=== PATIENT | male | born 1945 | race Caucasian/White ===

== ENCOUNTER 2018-10-16 08:15 | Inpatient (IN) | payer OTHER ==
[2018-10-16 08:21] VITALS: BMI 24.8
--- NOTE | 2018-10-16 08:22 | PDOC ---
History of Present Illness - General Chief Complaint: Diarrhea Stated Complaint: COUGHING,CHILLS,DIARRHEA Time Seen by Provider: 10/16/18 08:22 History Source: Patient Exam Limitations: No Limitations - History of Present Illness Initial Comments: 10/16/18 08:23 This is a 69 yo M with PMH of EtOH abuse, acid reflux, hypothyroidism, prostate CA, BPH, HLD and SZ, who presents due to weakness, diarrhea and URI symptoms. Patient has been well until he started feeling weak on Friday, developed rhinorrhea and a cough productive of white sputum on fri and started having watery diarrhea (brown) on fri, 3 episodes /day that has since decreased in frequency. patient has had minimal PO intake for several days and feels extremely weak today. he presents to ED because he was unable to schedule a PCP apt today. he had a flus hot this season, has a 20 ppy smoking history but never had pna. He denies n/v, h/a, cp/palpitations, lightheadedness, abd pain, melena, hematochezia. He is slightly hypotensive and tachycardic on presentation 10/16/18 08:24 10/16/18 08:45 10/16/18 08:49 Past History - Past Medical History Allergies/Adverse Reactions: Allergies Allergy/AdvReac Type Severity Reaction Status Date / Time No Known Allergies Allergy Verified 10/16/18 08:21 Home Medications: Ambulatory Orders Atorvastatin Ca [Lipitor] 20 mg PO HS #0 tab 02/04/12 Levothyroxine [Synthroid -] 50 mcg PO DAILY@0700 #0 tablet 02/04/12 Terazosin HCl 10 mg PO DAILY #0 capsule 02/04/12 levETIRAcetam [Keppra -] 500 mg PO BID #180 tablet 12/24/14 Metformin HCl [Metformin HCl ER] 500 mg PO DAILY 10/16/18 Omeprazole 20 mg PO DAILY 10/16/18 Cancer: Yes (Prostate (S/P RT 43 sessions) 2012) COPD: No CHF: No HTN: Yes Hypercholesterolemia: Yes Seizures: Yes Thyroid Disease: Yes - Immunization History Immunization Up to Date: Yes - Suicide/Smoking/Psychosocial Hx Smoking Status: Yes Smoking History: Never smoked Years of Tobacco Use: 35 Have you smoked in the past 12 months: No Number of Cigarettes Smoked Daily: 20 If you are a former smoker, when did you quit?: 2 Cigars Per Day: 0 Information on smoking cessation initiated: No 'Breaking Loose' booklet given: 11/26/14 Hx Alcohol Use: No Drug/Substance Use Hx: No Substance Use Type: None Hx Substance Use Treatment: No Review of Systems - Review of Systems Able to Perform ROS?: Yes Is the patient limited Japanese proficient: No Constitutional: Yes: Malaise. No: Chills, Fever HEENTM: Yes: Nose Congestion Respiratory: Yes: Cough, Productive cough. No: Orthopnea, Shortness of Breath Cardiac (ROS): No: Chest Pain, Edema, Irregular Heart Rate, Lightheadedness, Palpitations, Syncope ABD/GI: Yes: Diarrhea, Poor Appetite, Poor Fluid Intake. No: Abdominal Distended, Constipated, Nausea, Vomiting : No: Dysuria Musculoskeletal: No: Back Pain Neurological: No: Headache, Numbness, Paresthesia Psychiatric: No: Anxiety, Depression *Physical Exam - Vital Signs Last Vital Signs Temp Pulse Resp BP Pulse Ox 98.3 F 119 H 19 84/53 L 99 10/16/18 08:17 10/16/18 08:17 10/16/18 08:17 10/16/18 08:17 10/16/18 08:17 - Physical Exam General Appearance: Yes: Nourished, Appropriately Dressed, Thin. No: Apparent Distress, Alcohol on Breath HEENT: positive: EOMI, Normal Voice, Pharynx Normal, Tonsillar Erythema (mild), Nasal Congestion, Rhinorrhea, Other (dry mucous membranes ). negative: Scleral Icterus (R), Scleral Icterus (L) Neck: positive: Trachea midline, Supple. negative: Tender, Rigid Respiratory/Chest: positive: Lungs Clear, Normal Breath Sounds Cardiovascular: positive: Regular Rhythm, S1, S2, Tachycardia. negative: Edema , JVD Gastrointestinal/Abdominal: positive: Normal Bowel Sounds, Flat, Soft. negative : Tender, Organomegaly, Guarding, Rebound, Mass Musculoskeletal: negative: CVA Tenderness Integumentary: positive: Dry, Warm. negative: Erythema, Jaundice Neurologic: positive: multilith operator II-XII NML intact (grossly), Fully Oriented, Alert Moderate Sedation - Procedure Monitoring Vital Signs: Procedure Monitoring Vital Signs Temperature 98.3 F 10/16/18 08:17 Pulse Rate 119 H 10/16/18 08:17 Respiratory Rate 10/16/18 08:17 Blood Pressure 84/53 L 10/16/18 08:17 O2 Sat by Pulse Oximetry (%) 99 10/16/18 08:17 ED Treatment Course - LABORATORY CBC & Chemistry Diagram: 10/16/18 08:45 10/16/18 08:45 - ADDITIONAL ORDERS Additional order review: 10/16/18 10:22 Patient hypotensive and tachycardic, with rectal temp 101, lactate 3.6 on labs, adelia creat 1.4, no leukocytosis; consistent with severe sepsis ordering 3 cc/kg IVF NS and abx Repeat 108/58 after 1 L NS 10/16/18 10:25 CXR unremarkable 10/16/18 10:29 Clinical picture most consistent with viral enteritis/uri and severe dehydration , however cant r/o more serious causes of infection blood and urine cultures drawn, ua p/d. if has any more diarrhea should get tested for cdiff *DC/Admit/Observation/Transfer Diagnosis at time of Disposition: Severe sepsis - Discharge Dispostion Condition at time of disposition: Guarded Decision to Admit order: Yes - Referrals Referrals: Jose Luis Jimenez MD [Primary Care Provider] - - Patient Instructions - Post Discharge Activity
[2018-10-16] MEDS ORDERED: SODIUM CHLORIDE 0.9% 500 ML INFUS.BAG IV ONE ×2 (08:36→10:16)
[2018-10-16] MEDS ORDERED: SODIUM CHLORIDE 0.9% 1000 ML INFUS.BAG IV ONE (08:44)
[2018-10-16] MEDS ORDERED: ACETAMINOPHEN 1000 MG/100 ML VIAL (NON FORMULARY) IVPB ONE (08:59)
[2018-10-16] MEDS ORDERED: PIPERACILLIN/TAZOB 3.375 GM 3.375 GM in DEXTROSE 5%-WATER - 50 ML IVPB ONE (09:00)
[2018-10-16] MEDS ORDERED: VANCOMYCIN 1 GM in D5W (PRE-DOCKED) 1,000 MG/250 ML IVPB ONE (09:01)
[2018-10-16 09:23] LABS: BASO % 0.3 % (0-2.0); EOS % 0.5 % (0-4.5); HEMOGLOBIN 12.9 GM/dL (11.7-16.9); MCH 30.4 pg (25.7-33.7); MEAN CELL VOLUME 86.9 fl (80-96); MEAN PLT VOLUME 8.5 fl (7.5-11.1); MONO % 5.9 % (3.8-10.2); NEUT % 88.3 % (42.8-82.8); PLATELET COUNT 113 K/MM3 (134-434); RBC 4.26 M/mm3 (4.00-5.60); RDW 14.1 % (11.9-15.9); WHITE BLOOD COUNT 9.7 K/mm3 (4.0-10.0)
[2018-10-16 09:28] LABS: VENOUS PC02 46.6 mmHg (38-52); VENOUS PH 7.39 (7.32-7.42); VENOUS PO2 22.5 mmHg (28-48)
[2018-10-16 09:41] LABS: INR 1.16 (0.83-1.09); PROTHROMBIN TIME (PATIENT) 13.7 SEC (9.7-13.0)
[2018-10-16] MEDS ORDERED: ACETAMINOPHEN INJECTION 100 ML IVPB ONE (09:41)
[2018-10-16] MEDS ORDERED: VANCOMYCIN 1 GRAM (PRE-DOCKED) 1,000 MG/250 ML BAG IVPB ONE (09:41)
[2018-10-16] MEDS ORDERED: PIPERACILLIN/TAZOB 3.375 GM 3.375 GM/50 ML BAG IVPB ONE (09:42)
[2018-10-16 09:43] LABS: ACTIVATED PTT 25.8 SECONDS (25.2-36.5)
[2018-10-16 09:50] LABS: ALK PHOS 45 U/L (45-117); ANION GAP 9 MMOL/L (8-16); BILIRUBIN,TOTAL 0.6 mg/dL (0.2-1); BLOOD UREA NITROGEN 44 mg/dL (7-18); CALCIUM 9.2 mg/dL (8.5-10.1); CHLORIDE 102 mmol/L (98-107); CO2 29 mmol/L (21-32); CREATININE 1.4 mg/dL (0.55-1.3); GLUCOSE,RANDOM 195 mg/dL (74-106); LIPASE 75 U/L (73-393); POTASSIUM 4.1 mmol/L (3.5-5.1); SGOT/AST 16 U/L (15-37); SGPT/ALT 20 U/L (13-61); SODIUM 140 mmol/L (136-145); TRIGLYCERIDES 116 mg/dL (0-150)
--- NOTE | 2018-10-16 10:33 | PDOC ---
Attending Attestation - Medical Decision Making 2nd call placed for Dr. Jimenez's service 10/16/18 10:44 <Shannon Draper - Last Filed: 10/16/18 10:44> - Resident Resident Name: Whit Clarke - ED Attending Attestation I have performed the following: I have examined & evaluated the patient, The case was reviewed & discussed with the resident, I agree w/resident's findings & plan, Exceptions are as noted - HPI HPI: 10/16/18 10:49 69 years old past medical history significant for hypothyroidism hyperlipidemia , prostate cancer BPH acid reflux previous EtOH abuse presents emergency Department with four-day history of cough ingestion weakness watery diarrhea on Friday which has since started to resolve one episode today today became so weak that he collapsed to ground did not lose consciousness not had had symptoms have become moderate in severity persistent constant progressively worsening with no clear alleviating factors and exacerbated by decreased by mouth intake Insert my ROS statement. - Physicial Exam PE: 10/16/18 10:49 Vitals: Triage Vital signs reviewed General Appearance: no acute distress, well nourished well developed, Head: Atraumatic, Nose: Nares patent bilaterally;+ nasal congestion Throat: Posterior oropharynx without erythema, mucous membranes dry, Neck: Supple;No Nucal rigidity Chest Wall: Nontender Cardiac: Regular rate and rhythym, no murmurs, no rubs, no gallops, Lungs: Clear to auscultation bilateral, good air movement bilaterally, Abdomen: Soft, non distended, normal bowel sounds, non tender to palpation Extremities: Full range of motion to all extremities, no cyanosis, clubbing, or edema Skin: Warm and dry, no rashes or lesions, no rash, no petechiae Psych: normal mood, normal affect - Critical Care Time Total Critical Care Time: 35 Critical Care Statement: The care of this patient involved high complexity decision making to prevent further life threatening deterioration of the patient 's condition and/or to evaluate & treat vital organ system(s) failure or risk of failure. - Medical Decision Making 10/16/18 10:50 Vital signs concerning for sepsis given hypertension and tachycardia likely secondary to volume depletion Sepsis protocol initiated No significantly elevated white blood cell count patient with elevated lactic and elevated creatinine from baseline Flu negative chest x-ray unremarkable history examination at this point significant for volume depletion which is responding to fluids with a lactic acidosis Patient. Covered with broad-spectrum antibiotics we'll admit to medicine for further management. <Evan Blancas - Last Filed: 10/16/18 10:51>
--- NOTE | 2018-10-16 11:50 | EKG ---
Test Reason : Blood Pressure : / mmHG Vent. Rate : 105 BPM Atrial Rate : 105 BPM P-R Int : 138 ms QRS Dur : 074 ms QT Int : 348 ms P-R-T Axes : 056 034 057 degrees QTc Int : 459 ms SINUS TACHYCARDIA CANNOT RULE OUT ANTERIOR INFARCT , AGE UNDETERMINED ABNORMAL ECG WHEN COMPARED WITH ECG OF 23-DEC-2014 03:22, PREMATURE ATRIAL COMPLEXES ARE NO LONGER PRESENT Confirmed by MYRNA VICENTE, APRIL ([id number]) on 10/16/2018 11:49:52 AM Referred By: Confirmed By:APRIL NORRIS MD
--- NOTE | 2018-10-16 16:13 | HP ---
Admitting History and Physical - Primary Care Physician PCP: Jose Luis Jimenez - Admission History of Present Illness: pt seen/ examined in tele chart reviewed case discussed with vice president biostatistics Per Resident notes This is a 69 yo M with PMH of EtOH abuse, acid reflux, hypothyroidism, prostate CA, BPH, HLD and SZ, who presents due to weakness, diarrhea and URI symptoms. Patient has been well until he started feeling weak on Friday, developed rhinorrhea and a cough productive of white sputum on fri and started having watery diarrhea (brown) on fri, 3 episodes /day that has since decreased in frequency. patient has had minimal PO intake for several days and feels extremely weak today. he presents to ED because he was unable to schedule a PCP apt today. he had a flus hot this season, has a 20 ppy smoking history but never had pna. He denies n/v, h/a, cp/palpitations, lightheadedness, abd pain, melena, hematochezia. He is slightly hypotensive and tachycardic on presentation Pt given fluids / broad spectrum abx in er LActic acid elevated cxr -ve u/a pending pt feels better History Source: Patient Limitations to Obtaining History: No Limitations - Past Medical History Cardiovascular: Yes: HTN, Hyperlipdemia Gastrointestinal: Yes: GERD Renal/: Yes: Cancer (prostate cancer) Endocrine: Yes: Hypothyroidism - Smoking History Smoking history: Never smoked Have you smoked in the past 12 months: No Aproximately how many cigarettes per day: 20 If you are a former smoker, when did you quit?: 2 - Alcohol/Substance Use Hx Alcohol Use: No (occasional) - Social History History of Recent Travel: No Home Medications - Allergies Allergies/Adverse Reactions: Allergies Allergy/AdvReac Type Severity Reaction Status Date / Time No Known Allergies Allergy Verified 10/16/18 08:21 - Home Medications Home Medications: Ambulatory Orders Atorvastatin Ca [Lipitor] 20 mg PO HS #0 tab 02/04/12 Levothyroxine [Synthroid -] 50 mcg PO DAILY@0700 #0 tablet 02/04/12 levETIRAcetam [Keppra -] 500 mg PO BID #180 tablet 12/24/14 Metformin HCl [Metformin HCl ER] 500 mg PO DAILY 10/16/18 Omeprazole 20 mg PO HS 10/16/18 Terazosin HCl 10 mg PO HS 10/16/18 Review of Systems - Review of Systems Constitutional: reports: Fever, Loss of Appetite, Malaise, Weakness Eyes: reports: No Symptoms Neck: reports: No Symptoms Cardiovascular: reports: No Symptoms Respiratory: reports: Cough Genitourinary: reports: No Symptoms Neurological: reports: No Symptoms Psychiatric: reports: No Symptoms Physical Examination Vital Signs: Vital Signs Temperature 97.9 F 10/16/18 12:50 Pulse Rate 94 H 10/16/18 12:50 Respiratory Rate 18 10/16/18 12:50 Blood Pressure 105/58 L 10/16/18 12:50 O2 Sat by Pulse Oximetry (%) 97 10/16/18 13:32 Constitutional: Yes: No Distress, Calm Eyes: Yes: Conjunctiva Clear Neck: Yes: Supple, Other (no lymphadenopathy) Cardiovascular: Yes: Regular Rate and Rhythm Respiratory: Yes: CTA Bilaterally Gastrointestinal: Yes: Normal Bowel Sounds, Soft Edema: No Neurological: Yes: Alert Labs: CBC, BMP 10/16/18 08:45 10/16/18 08:45 Imaging - Results Chest X-ray: Report Reviewed EKG: Report Reviewed Other: Other Problem List - Problems (1) Hypotension Code(s): I95.9 - HYPOTENSION, UNSPECIFIED (2) Lactic acid blood increased Code(s): R79.89 - OTHER SPECIFIED ABNORMAL FINDINGS OF BLOOD CHEMISTRY (3) Severe sepsis Code(s): A41.9 - SEPSIS, UNSPECIFIED ORGANISM; R65.20 - SEVERE SEPSIS WITHOUT SEPTIC SHOCK Assessment/Plan Discussed fluids abx for now- empiricallyf/u cultures/ u/a orders written will follow
[2018-10-16] MEDS ORDERED: DEXTROSE 5%-WATER - 50 ML IVPB ONE (16:19)
[2018-10-16] MEDS ORDERED: cefTRIAXone SODIUM 1 GM VIAL ONE (16:19)
[2018-10-16 16:21] LABS: URINE APPEARANCE CLOUDY; URINE BILIRUBIN NEGATIVE (<2.0 mg/dL); URINE COLOR AMBER; URINE GLUCOSE (UA) 1+ (NEGATIVE); URINE KETONE TRACE (NEGATIVE); URINE LEUK ESTERASE NEGATIVE (NEGATIVE); URINE NITRITE NEGATIVE (NEGATIVE); URINE PROTEIN NEGATIVE (NEGATIVE); URINE UROBILINOGEN NEGATIVE mg/dL (0.2-1.0)
[2018-10-16] MEDS: SODIUM CHLORIDE 1,000 ML IV SCH (16:30)
[2018-10-16] MEDS: CEFTRIAXONE 1 GM in DEXTROSE 5%-WATER - 50 ML IVPB SCH (16:31)
[2018-10-16] MEDS ORDERED: PT OWN MED DRAWER 7, Y5N ONE (20:14)
[2018-10-16] MEDS: PANTOPRAZOLE 20 MG TABLET (FP) PO SCH ×2 (20:19→21:06)
[2018-10-16] MEDS: ATORVASTATIN CA 20 MG TABLET (FP) PO SCH (21:06)
[2018-10-16] MEDS: levETIRAcetam 500 MG TABLET (FP) PO SCH (21:06)
[2018-10-16] MEDS: TERAZOSIN HCL 5 MG CAPSULE PO SCH (21:07)
[2018-10-16] MEDS ORDERED: FAMOTIDINE 20 MG/50 ML IVPB 20 MG/50 ML MG IVPB ONE (21:17)
[2018-10-17] MEDS ORDERED: SODIUM CHLORIDE 500 ML IV STA (05:57)
[2018-10-17] MEDS: LEVOTHYROXINE NA 50 MCG TABLET (FP) PO SCH (06:19)
[2018-10-17 07:59] LABS: BASO % 0.3 % (0-2.0); HEMATOCRIT 22.8 % (35.4-49); HEMOGLOBIN 7.9 GM/dL (11.7-16.9); LYMPH % 11.4 % (8-40); MCH 29.7 pg (25.7-33.7); MCHC 34.5 g/dl (32.0-35.9); MEAN PLT VOLUME 8.6 fl (7.5-11.1); MONO % 10.3 % (3.8-10.2); PLATELET COUNT 97 K/MM3 (134-434); RBC 2.66 M/mm3 (4.00-5.60); RDW 14.2 % (11.9-15.9); WHITE BLOOD COUNT 5.6 K/mm3 (4.0-10.0)
[2018-10-17] MEDS ORDERED: cefTRIAXone SODIUM 1 GM VIAL ONE (08:15)
[2018-10-17] MEDS ORDERED: DEXTROSE 5%-WATER - 50 ML IVPB ONE (08:15)
[2018-10-17 08:57] LABS: ALK PHOS 30 U/L (45-117); ANION GAP 6 MMOL/L (8-16); BILIRUBIN,TOTAL 0.3 mg/dL (0.2-1); BLOOD UREA NITROGEN 28 mg/dL (7-18); CHLORIDE 114 mmol/L (98-107); CHOLESTEROL 73 mg/dL (50-200); CO2 24 mmol/L (21-32); CREATININE 0.9 mg/dL (0.55-1.3); GLUCOSE,RANDOM 92 mg/dL (74-106); HDL CHOLESTEROL 23 mg/dL (40-60); POTASSIUM 3.7 mmol/L (3.5-5.1); SGOT/AST 14 U/L (15-37); SGPT/ALT 14 U/L (13-61); SODIUM 143 mmol/L (136-145); TOT PROT 4.1 g/dl (6.4-8.2); TRIGLYCERIDES 109 mg/dL (0-150)
[2018-10-17] MEDS: levETIRAcetam 500 MG TABLET (FP) PO SCH ×2 (09:22→21:39)
[2018-10-17] MEDS: CEFTRIAXONE 1 GM in DEXTROSE 5%-WATER - 50 ML IVPB SCH (09:22)
[2018-10-17] MEDS: ENOXAPARIN NA (PORCINE) 40 MG/0.4 ML DISP.SYRIN SQ SCH (09:22)
[2018-10-17 11:54] LABS: BASO % 0.1 % (0-2.0); EOS % 3.2 % (0-4.5); HEMATOCRIT 22.8 % (35.4-49); HEMOGLOBIN 7.9 GM/dL (11.7-16.9); LYMPH % 12.8 % (8-40); MCH 30.1 pg (25.7-33.7); MCHC 34.5 g/dl (32.0-35.9); MEAN CELL VOLUME 87.4 fl (80-96); MONO % 9.4 % (3.8-10.2); NEUT % 74.5 % (42.8-82.8); PLATELET COUNT 95 K/MM3 (134-434); RBC 2.61 M/mm3 (4.00-5.60); RDW 14.3 % (11.9-15.9); WHITE BLOOD COUNT 5.2 K/mm3 (4.0-10.0)
--- NOTE | 2018-10-17 11:54 | PN ---
Progress Note (short form) - Note Progress Note: pt seen/ examined feels better no distress bp still low side low grade temp Vital Signs Temp 99.0 F 10/17/18 09:03 Pulse 92 H 10/17/18 09:03 Resp 16 10/17/18 09:03 BP 98/56 L 10/17/18 09:03 Pulse Ox 98 10/17/18 09:00 Intake & Output 10/16/18 10/16/18 10/17/18 11:59 23:59 11:59 Intake Total 450 200 Balance 450 200 Weight 173 lb 173 lb Intake: IV 450 200 Normal Saline - 1,000 ml 450 @ 100 mls/hr IV ASDIR SHAUN Rx#:[id number] Normal Saline - 500 ml @ 200 500 mls/hr IV ASDIR STA Rx#:[id number] Other: Voiding Method Urinal Urinal Height 5 ft 10 in 5 ft 10 in Body Mass Index (BMI) 24.8 24.8 Weight Measurement Method Estimated by Patient Weight Measurement Method Standing Scale Active Medications Atorvastatin Calcium (Lipitor -) 20 mg PO HS [facility] Last Admin: 10/16/18 21:06 Dose: 20 mg Enoxaparin Sodium (Lovenox -) 40 mg SQ DAILY [facility] Last Admin: 10/17/18 09:22 Dose: 40 mg Ceftriaxone Sodium 1 gm/ (Dextrose) 50 mls @ 100 mls/hr IVPB DAILY [facility]; Protocol Last Admin: 10/17/18 09:22 Dose: 100 mls/hr Sodium Chloride (Normal Saline -) 1,000 mls @ 100 mls/hr IV [facility] Last Admin: 10/16/18 16:30 Dose: 100 mls/hr Levetiracetam (Keppra -) 500 mg PO BID [facility] Last Admin: 10/17/18 09:22 Dose: 500 mg Levothyroxine Sodium (Synthroid -) 50 mcg PO DAILY@0700 [facility] Last Admin: 10/17/18 06:19 Dose: 50 mcg Metformin HCl (Glucophage Xr -) 500 mg PO DAILY [facility] Last Admin: 10/17/18 09:22 Dose: 500 mg Pantoprazole Sodium (Protonix -) 20 mg PO HS [facility] Last Admin: 10/16/18 21:06 Dose: Not Given Terazosin HCl (Hytrin -) 10 mg PO [facility] Last Admin: 10/16/18 21:07 Dose: 10 mg CBC, BMP 10/17/18 05:50 Microbiology 10/16/18 08:45 Blood Culture - Preliminary Blood - Peripheral Venous NO GROWTH OBTAINED AFTER 24 HOURS, INCUBATION TO CONTINUE FOR 4 DAYS. 10/16/18 08:50 Blood Culture - Preliminary Blood - Peripheral Venous NO GROWTH OBTAINED AFTER 24 HOURS, INCUBATION TO CONTINUE FOR 4 DAYS. Physical Examination Constitutional: Yes: No Distress, Calm Eyes: Yes: Conjunctiva Clear Neck: Yes: Supple, Other (no lymphadenopathy) Cardiovascular: Yes: Regular Rate and Rhythm Respiratory: Yes: CTA Bilaterally Gastrointestinal: Yes: Normal Bowel Sounds, Soft Edema: No Neurological: Yes: Alert/ awake Imaging - Results Chest X-ray: Report Reviewed EKG: Report Reviewed Other: Other Problem List - Problems (1) Hypotension Code(s): I95.9 - HYPOTENSION, UNSPECIFIED (2) Lactic acid blood increased Code(s): R79.89 - OTHER SPECIFIED ABNORMAL FINDINGS OF BLOOD CHEMISTRY (3) Severe sepsis Code(s): A41.9 - SEPSIS, UNSPECIFIED ORGANISM; R65.20 - SEVERE SEPSIS WITHOUT SEPTIC SHOCK Assessment/Plan Better cultures -ve so far viral ? fluids abx today if stable- will consider d/c abx in am / d/c Discussed with also will follow
[2018-10-17] MEDS: SODIUM CHLORIDE 1,000 ML IV SCH (16:34)
[2018-10-17] MEDS: PANTOPRAZOLE 20 MG TABLET (FP) PO SCH (21:38)
[2018-10-17] MEDS: ATORVASTATIN CA 20 MG TABLET (FP) PO SCH (21:39)
[2018-10-17] MEDS: TERAZOSIN HCL 5 MG CAPSULE PO SCH (21:41)
[2018-10-18] MEDS: LEVOTHYROXINE NA 50 MCG TABLET (FP) PO SCH (06:41)
[2018-10-18 07:42] LABS: BASO % 0.2 % (0-2.0); EOS % 4.7 % (0-4.5); HEMATOCRIT 21.7 % (35.4-49); HEMOGLOBIN 7.4 GM/dL (11.7-16.9); LYMPH % 12.3 % (8-40); MCH 29.6 pg (25.7-33.7); MCHC 34.3 g/dl (32.0-35.9); MEAN CELL VOLUME 86.3 fl (80-96); MEAN PLT VOLUME 8.4 fl (7.5-11.1); MONO % 8.4 % (3.8-10.2); NEUT % 74.4 % (42.8-82.8); PLATELET COUNT 114 K/MM3 (134-434); RBC 2.51 M/mm3 (4.00-5.60); RDW 14.5 % (11.9-15.9); WHITE BLOOD COUNT 5.1 K/mm3 (4.0-10.0)
[2018-10-18 08:25] LABS: ALBUMIN 2.3 g/dl (3.4-5.0); ALK PHOS 41 U/L (45-117); ANION GAP 8 MMOL/L (8-16); BILIRUBIN,TOTAL 0.3 mg/dL (0.2-1); BLOOD UREA NITROGEN 15 mg/dL (7-18); CHLORIDE 114 mmol/L (98-107); CO2 22 mmol/L (21-32); CREATININE 0.8 mg/dL (0.55-1.3); GLUCOSE,RANDOM 85 mg/dL (74-106); SGOT/AST 26 U/L (15-37); SGPT/ALT 25 U/L (13-61); SODIUM 144 mmol/L (136-145); TOT PROT 4.7 g/dl (6.4-8.2)
[2018-10-18] MEDS ORDERED: DEXTROSE 5%-WATER - 50 ML IVPB ONE (09:17)
[2018-10-18] MEDS ORDERED: cefTRIAXone SODIUM 1 GM VIAL ONE (09:17)
[2018-10-18] MEDS: CEFTRIAXONE 1 GM in DEXTROSE 5%-WATER - 50 ML IVPB SCH (09:22)
[2018-10-18] MEDS: levETIRAcetam 500 MG TABLET (FP) PO SCH (09:23)
[2018-10-18] MEDS: ENOXAPARIN NA (PORCINE) 40 MG/0.4 ML DISP.SYRIN SQ SCH (09:23)
[2018-10-18] MEDS ORDERED: POTASSIUM CHLORIDE ORAL LIQUID 20 MEQ/15 ML PO ONE (10:15)
[2018-10-18 11:27] VITALS: BP 95/51; PULSE 80
--- NOTE | 2018-10-18 12:22 | DS ---
Physical Examination Vital Signs: Vital Signs Temperature 98.3 F 10/18/18 05:30 Pulse Rate 80 10/18/18 10:00 Respiratory Rate 20 10/18/18 08:42 Blood Pressure 95/51 L 10/18/18 10:00 O2 Sat by Pulse Oximetry (%) 97 10/18/18 08:42 Findings/Remarks: pt seen/ examined comfortable but very anxious denies pain. wants to go home - dont want to stay ct scan done-- report pending discussed about anemia-- says will consider Anemia work up as out pt. Constitutional: Yes: No Distress, Anxious Eyes: Yes: Conjunctiva Clear Neck: Yes: Supple Cardiovascular: Yes: Regular Rate and Rhythm Respiratory: Yes: CTA Bilaterally, Diminished Gastrointestinal: Yes: Normal Bowel Sounds, Soft Edema: No Neurological: Yes: WNL Psychiatric: Yes: Other (anxiety + -- worrying about ) Labs: CBC, BMP 10/18/18 05:50 10/18/18 05:50 Discharge Summary Reason For Visit: SEVERE SEPSIS Current Active Problems Hypotension (Acute) Lactic acid blood increased (Acute) Severe sepsis (Acute) Hospital Course: admitted for sepsis/ dehydration treated with abx/ fluids cultures -ve significant anemia no obvious bleeding ct abd- Pleural effusion / no abd mass pt insists to go home will d/c off abx strongly advised -- need gi work up-- colonoscopy etc says will consider f/u in office this week meds reconcilled discussed with nursing staff d./c home Condition: Stable - Instructions Referrals: Jose Luis Jimenez MD [Primary Care Provider] - Disposition: HOME - Home Medications Comprehensive Discharge Medication List: Ambulatory Orders Atorvastatin Ca [Lipitor] 20 mg PO HS #0 tab 02/04/12 Levothyroxine [Synthroid -] 50 mcg PO DAILY@0700 #0 tablet 02/04/12 levETIRAcetam [Keppra -] 500 mg PO BID #180 tablet 12/24/14 Metformin HCl [Metformin HCl ER] 500 mg PO DAILY 10/16/18 Omeprazole 20 mg PO HS 10/16/18 Terazosin HCl 10 mg PO HS 10/16/18
[2018-10-18 12:53] VITALS: TEMP 97.8
[2018-10-19 09:04] LABS: MAGNESIUM 1.5 mg/dL (1.8-2.4)
== END 2018-10-18 12:52 | disposition home or self-care (01) | DRG 315 ==
LOC: JER 08:15 → JERBED 10:35 → J4W 13:03
PROVIDERS: ADMIT Internal Medicine; ATTEND Internal Medicine
DX: I95.9 Hypotension, unspecified (principal); J90 Pleural effusion, not elsewhere classified; E87.2 Acidosis; F10.10 Alcohol abuse, uncomplicated; E03.9 Hypothyroidism, unspecified; N40.0 Benign prostatic hyperplasia without lower urinary tract symptoms; E78.5 Hyperlipidemia, unspecified; K21.9 Gastro-esophageal reflux disease without esophagitis; C61 Malignant neoplasm of prostate; E86.9 Volume depletion, unspecified; D64.9 Anemia, unspecified
CPT/HCPCS: 36415; 71045-TC-FY; 74150-TC; 80053; 80061; 81003; 82803; 82962; 83036; 83605; 83690; 83721; 83735; 84443; 84478; 84484; 85025; 85610; 85730; 87040; 87086; 87804; 93005; 93010; 99282-25; J0131; J7030; Q9967

== ENCOUNTER 2020-10-19 05:32 | Inpatient (IN) | payer OTHER ==
[2020-10-19 05:39] VITALS: BMI 27.9
[2020-10-19] MEDS ORDERED: FOLIC ACID INJECTION - 1 MG, THIAMINE HCL 100 MG, MULTIVIT INJECTION ADULT 10 ML in SOD... IVPB ONE (05:50)
[2020-10-19 07:22] LABS: INR 0.94 (0.83-1.09); PROTHROMBIN TIME (PATIENT) 11.6 SEC (9.7-13.0)
[2020-10-19 07:25] LABS: ACTIVATED PTT 24.1 SECONDS (25.2-36.5)
[2020-10-19 07:26] LABS: BASO % 0.4 % (0-2.0); EOS % 5.9 % (0-4.5); HEMATOCRIT 41.6 % (35.4-49); LYMPH % 23.5 % (8-40); MCHC 33.6 g/dl (32.0-35.9); MEAN CELL VOLUME 86.4 fl (80-96); MEAN PLT VOLUME 8.7 fl (7.5-11.1); MONO % 9.7 % (3.8-10.2); NEUT % 60.5 % (42.8-82.8); PLATELET COUNT 142 K/MM3 (134-434); RBC 4.82 M/mm3 (4.00-5.60); RDW 14.6 % (11.9-15.9); WHITE BLOOD COUNT 7.6 K/mm3 (4.0-10.0)
[2020-10-19 07:29] LABS: CHLORIDE 107 mmol/L (98-107); POTASSIUM 3.9 mmol/L (3.5-5.1); SODIUM 140 mmol/L (136-145)
[2020-10-19 07:31] LABS: ALBUMIN 3.3 g/dl (3.4-5.0); ANION GAP 15 MMOL/L (8-16); CALCIUM 8.8 mg/dL (8.5-10.1); CO2 18 mmol/L (21-32)
[2020-10-19 07:32] LABS: BLOOD UREA NITROGEN 10.6 mg/dL (7-18); GLUCOSE,RANDOM 232 mg/dL (74-106); MAGNESIUM 2.2 mg/dL (1.8-2.4)
[2020-10-19 07:34] LABS: SGOT/AST 15 U/L (15-37); SGPT/ALT 24 U/L (13-61)
[2020-10-19 07:35] LABS: CREATININE 1.4 mg/dL (0.55-1.3)
[2020-10-19 07:36] LABS: BILIRUBIN,TOTAL 0.4 mg/dL (0.2-1); TOT PROT 6.7 g/dl (6.4-8.2)
[2020-10-19 07:37] LABS: ALK PHOS 71 U/L (45-117)
[2020-10-19 08:52] LABS: ANISOCYTOSIS 1+; MACROCYTOSIS 0; PLATELET ESTIMATE DECREASED; TEAR DROP CELLS 1+
[2020-10-19] MEDS ORDERED: chlordiazePOXIDE HCL 25 MG CAPSULE PO PRN (11:42)
[2020-10-19] MEDS ORDERED: chlordiazePOXIDE HCL 25 MG CAPSULE ONE ×2 (12:46→17:04)
[2020-10-19] MEDS: chlordiazePOXIDE HCL 25 MG CAPSULE PO SCH ×3 (12:52→23:10)
[2020-10-19 13:36] LABS: EPI CELLS 5 /uL (0-25.1); HYALINE CASTS 0 /uL (0-3.1); PH,URINE 5.5 (5.0-8.0); URINE APPEARANCE CLEAR; URINE BACTERIA 338 /uL (0-1359); URINE BILIRUBIN NEGATIVE (NEGATIVE); URINE COLOR YELLOW; URINE GLUCOSE (UA) TRACE (NEGATIVE); URINE KETONE TRACE (NEGATIVE); URINE LEUK ESTERASE NEGATIVE (NEGATIVE); URINE NITRITE NEGATIVE (NEGATIVE); URINE PROTEIN 1+ (NEGATIVE); URINE RBC 19 /uL (0-23.9); URINE UROBILINOGEN 0.2 mg/dL (0.2-1.0); URINE WBC 4 /uL (0-25.8)
[2020-10-19] MEDS: SODIUM CHLORIDE 0.45% 1,000 ML IV SCH (20:25)
[2020-10-19] MEDS: levETIRAcetam 500 MG TABLET (FP) PO SCH (23:10)
[2020-10-19] MEDS: TERAZOSIN HCL 5 MG CAPSULE PO SCH (23:24)
[2020-10-20] MEDS ORDERED: LEVOTHYROXINE NA 50 MCG TABLET (FP) PO SCH (07:00)
[2020-10-20] MEDS: chlordiazePOXIDE HCL 25 MG CAPSULE PO SCH ×4 (07:08→22:46)
[2020-10-20 08:00] LABS: BASO % 0.2 % (0-2.0); EOS % 5.6 % (0-4.5); HEMATOCRIT 37.5 % (35.4-49); HEMOGLOBIN 12.6 GM/dL (11.7-16.9); LYMPH % 15.5 % (8-40); MCH 28.5 pg (25.7-33.7); MCHC 33.5 g/dl (32.0-35.9); MEAN PLT VOLUME 8.7 fl (7.5-11.1); NEUT % 67.7 % (42.8-82.8); PLATELET COUNT 125 K/MM3 (134-434); RBC 4.42 M/mm3 (4.00-5.60); RDW 14.6 % (11.9-15.9); WHITE BLOOD COUNT 6.5 K/mm3 (4.0-10.0)
[2020-10-20 08:16] LABS: POTASSIUM 3.6 mmol/L (3.5-5.1)
[2020-10-20 08:22] LABS: CALCIUM 8.4 mg/dL (8.5-10.1)
[2020-10-20 08:23] LABS: BLOOD UREA NITROGEN 9.1 mg/dL (7-18); MAGNESIUM 2.2 mg/dL (1.8-2.4)
[2020-10-20 08:28] LABS: BILIRUBIN,TOTAL 1.4 mg/dL (0.2-1); TOT PROT 5.8 g/dl (6.4-8.2)
[2020-10-20] MEDS: levETIRAcetam 500 MG TABLET (FP) PO SCH ×2 (09:18→21:28)
[2020-10-20] MEDS ORDERED: MULTIVIT-MINERALS ORAL LIQUID PO SCH (10:00)
[2020-10-20] MEDS ORDERED: THIAMINE HCL 100 MG TABLET (FP) PO SCH (10:00)
[2020-10-20] MEDS: SODIUM CHLORIDE 0.45% 1,000 ML IV SCH (16:56)
[2020-10-20] MEDS ORDERED: PT OWN MED DRAWER 7, Y5N ONE (21:15)
[2020-10-20] MEDS: TERAZOSIN HCL 5 MG CAPSULE PO SCH (22:46)
[2020-10-21] MEDS ORDERED: SODIUM CHLORIDE 0.45% 1,000 ML IV SCH (00:52)
[2020-10-21] MEDS ORDERED: chlordiazePOXIDE HCL 25 MG CAPSULE PO PRN (00:52)
[2020-10-21] MEDS ORDERED: chlordiazePOXIDE HCL 25 MG CAPSULE PO SCH ×2 (05:00)
[2020-10-21 05:42] VITALS: TEMP 97.5
[2020-10-21] MEDS ORDERED: SODIUM CHLORIDE 0.9% 500 ML INFUS.BAG IV ONE (05:45)
[2020-10-21] MEDS ORDERED: LEVOTHYROXINE NA 50 MCG TABLET (FP) PO SCH (07:00)
[2020-10-21] MEDS ORDERED: THIAMINE HCL 100 MG TABLET (FP) PO SCH (10:00)
[2020-10-21] MEDS ORDERED: MULTIVIT-MINERALS ORAL LIQUID PO SCH (10:00)
[2020-10-21] MEDS: levETIRAcetam 500 MG TABLET (FP) PO SCH (10:35)
[2020-10-21 14:40] VITALS: BP 111/55; PULSE 65
[2020-10-21] MEDS ORDERED: TERAZOSIN HCL 5 MG CAPSULE PO SCH (22:00)
[2020-10-22] MEDS ORDERED: chlordiazePOXIDE HCL 10 MG CAPSULE PO PRN ×2
[2020-10-22] MEDS ORDERED: chlordiazePOXIDE HCL 10 MG CAPSULE PO SCH ×2 (05:00)
[2020-10-23] MEDS ORDERED: chlordiazePOXIDE HCL 10 MG CAPSULE PO SCH ×2 (05:00)
[2020-10-24] MEDS ORDERED: chlordiazePOXIDE HCL 10 MG CAPSULE PO ONE ×2 (05:00)
== END 2020-10-21 16:38 | disposition home or self-care (01) | DRG 101 ==
LOC: JER 05:32 → JERBED 07:57 → OBSVTOIN 11:42 → J4W 21:17 → J6S 10-20 21:36
PROVIDERS: ADMIT Internal Medicine; ATTEND Internal Medicine
PROC: HZ2ZZZZ Detoxification Services for Substance Abuse Treatment (ICD-10-PCS; principal; 2020-10-19)
DX: G40.909 Epilepsy, unspecified, not intractable, without status epilepticus (principal); F10.10 Alcohol abuse, uncomplicated; I10 Essential (primary) hypertension; E78.5 Hyperlipidemia, unspecified; E03.9 Hypothyroidism, unspecified; E11.9 Type 2 diabetes mellitus without complications; R45.1 Restlessness and agitation; Z85.46 Personal history of malignant neoplasm of prostate; K21.9 Gastro-esophageal reflux disease without esophagitis
CPT/HCPCS: 36415; 70450-TC; 71045-TC-FY; 72125-TC; 80053; 80177; 80307; 81003; 82140; 82607; 82747; 83735; 84443; 84484; 85014; 85025; 85610; 85730; 87086; 93005; 93010; 99285-25; C9803; G0378; U0003

== ENCOUNTER 2020-10-22 10:19 | Inpatient (IN) | payer OTHER ==
[2020-10-22 10:42] VITALS: BMI 23.6
[2020-10-22 11:29] LABS: HEMATOCRIT 38.4 % (35.4-49); HEMOGLOBIN 12.9 GM/dL (11.7-16.9); MCH 28.8 pg (25.7-33.7); MCHC 33.5 g/dl (32.0-35.9); MEAN CELL VOLUME 85.8 fl (80-96); MEAN PLT VOLUME 8.3 fl (7.5-11.1); PLATELET COUNT 139 K/MM3 (134-434); RBC 4.48 M/mm3 (4.00-5.60); RDW 14.7 % (11.9-15.9)
[2020-10-22 11:43] LABS: CHLORIDE 109 mmol/L (98-107); POTASSIUM 4.4 mmol/L (3.5-5.1); SODIUM 142 mmol/L (136-145)
[2020-10-22 11:45] LABS: ANION GAP 4 MMOL/L (8-16); CALCIUM 9.7 mg/dL (8.5-10.1); CO2 28 mmol/L (21-32)
[2020-10-22 11:46] LABS: BLOOD UREA NITROGEN 24.3 mg/dL (7-18); GLUCOSE,RANDOM 167 mg/dL (74-106)
[2020-10-22 11:48] LABS: SGPT/ALT 25 U/L (13-61)
[2020-10-22 11:49] LABS: CREATININE 1.3 mg/dL (0.55-1.3); SGOT/AST 23 U/L (15-37)
[2020-10-22 11:50] LABS: BILIRUBIN,TOTAL 0.8 mg/dL (0.2-1); TOT PROT 6.3 g/dl (6.4-8.2)
[2020-10-22 11:51] LABS: ALK PHOS 55 U/L (45-117)
[2020-10-22] MEDS ORDERED: predniSONE 20 MG TABLET (UD) ONE (12:54)
[2020-10-22] MEDS ORDERED: predniSONE 10 MG TABLET (UD) ONE (12:54)
[2020-10-22] MEDS: predniSONE 20 MG TABLET (UD) PO SCH (13:17)
[2020-10-22] MEDS ORDERED: PANTOPRAZOLE 20 MG TABLET PO ONE (21:40)
[2020-10-22] MEDS ORDERED: ATORVASTATIN CA 20 MG TABLET (FP) ONE (21:40)
[2020-10-22] MEDS ORDERED: levETIRAcetam 500 MG TABLET (FP) PO ONE (21:41)
[2020-10-22] MEDS: levETIRAcetam 500 MG TABLET (FP) PO SCH (21:53)
[2020-10-22] MEDS: PANTOPRAZOLE 20 MG TABLET PO SCH (21:53)
[2020-10-22] MEDS: TERAZOSIN HCL 5 MG CAPSULE PO SCH (21:53)
[2020-10-22] MEDS: ATORVASTATIN CA 80 MG TABLET (FP) PO SCH (21:53)
[2020-10-22] MEDS ORDERED: chlordiazePOXIDE HCL 10 MG CAPSULE PO SCH (22:00)
[2020-10-23] MEDS ORDERED: MAG HYDROX/AL HYDROX/SIMETH 30 ML UNIT-DOSE CUP ONE (02:23)
[2020-10-23] MEDS ORDERED: LEVOTHYROXINE NA 25 MCG TABLET (FP) ONE (06:31)
[2020-10-23] MEDS: LEVOTHYROXINE NA 50 MCG TABLET (FP) PO SCH (06:53)
[2020-10-23] MEDS ORDERED: THIAMINE HCL 100 MG TABLET (FP) ONE (09:58)
[2020-10-23] MEDS ORDERED: predniSONE 20 MG TABLET (UD) ONE (09:58)
[2020-10-23] MEDS ORDERED: predniSONE 10 MG TABLET (UD) ONE (09:58)
[2020-10-23] MEDS ORDERED: levETIRAcetam 500 MG TABLET (FP) PO ONE ×2 (09:58→22:22)
[2020-10-23] MEDS ORDERED: PT OWN MED DRAWER 7, Y5N ONE ×2 (09:59→22:22)
[2020-10-23] MEDS: levETIRAcetam 500 MG TABLET (FP) PO SCH ×2 (10:00→22:28)
[2020-10-23] MEDS: predniSONE 20 MG TABLET (UD) PO SCH (10:00)
[2020-10-23] MEDS: MULTIVITAMINS THER W-MINERALS COMBO TABLET (FP) PO SCH (10:00)
[2020-10-23] MEDS: THIAMINE HCL 100 MG TABLET (FP) PO SCH (10:00)
[2020-10-23] MEDS ORDERED: chlordiazePOXIDE 5 MG CAPSULE PO STA (12:02)
[2020-10-23] MEDS ORDERED: chlordiazePOXIDE 5 MG CAPSULE ONE ×2 (12:26→22:21)
[2020-10-23] MEDS ORDERED: ATORVASTATIN CA 20 MG TABLET (FP) ONE (22:21)
[2020-10-23] MEDS ORDERED: PANTOPRAZOLE 20 MG TABLET PO ONE (22:22)
[2020-10-23] MEDS: chlordiazePOXIDE HCL 10 MG CAPSULE PO SCH (22:28)
[2020-10-23] MEDS: PANTOPRAZOLE 20 MG TABLET PO SCH (22:28)
[2020-10-23] MEDS: ATORVASTATIN CA 80 MG TABLET (FP) PO SCH (22:28)
[2020-10-24] MEDS: LEVOTHYROXINE NA 50 MCG TABLET (FP) PO SCH (07:01)
[2020-10-24] MEDS: predniSONE 20 MG TABLET (UD) PO SCH (09:59)
[2020-10-24] MEDS: chlordiazePOXIDE HCL 10 MG CAPSULE PO SCH (10:00)
[2020-10-24] MEDS: levETIRAcetam 500 MG TABLET (FP) PO SCH ×2 (10:00→21:57)
[2020-10-24] MEDS: THIAMINE HCL 100 MG TABLET (FP) PO SCH (10:01)
[2020-10-24] MEDS: MULTIVITAMINS THER W-MINERALS COMBO TABLET (FP) PO SCH (10:01)
[2020-10-24] MEDS ORDERED: PT OWN MED DRAWER 7, Y5N ONE (20:56)
[2020-10-24] MEDS: TERAZOSIN HCL 5 MG CAPSULE PO SCH (21:56)
[2020-10-24] MEDS: PANTOPRAZOLE 20 MG TABLET PO SCH (21:58)
[2020-10-24] MEDS: ATORVASTATIN CA 80 MG TABLET (FP) PO SCH (21:58)
[2020-10-25] MEDS: LEVOTHYROXINE NA 50 MCG TABLET (FP) PO SCH (06:28)
[2020-10-25] MEDS: predniSONE 20 MG TABLET (UD) PO SCH (10:43)
[2020-10-25] MEDS: levETIRAcetam 500 MG TABLET (FP) PO SCH (10:47)
[2020-10-25] MEDS: THIAMINE HCL 100 MG TABLET (FP) PO SCH (10:47)
[2020-10-25] MEDS: MULTIVITAMINS THER W-MINERALS COMBO TABLET (FP) PO SCH (10:47)
[2020-10-25] MEDS ORDERED: levETIRAcetam 500 MG TABLET (FP) PO SCH (13:11)
[2020-10-25 19:48] VITALS: BP 133/69; PULSE 84; TEMP 97.3
== END 2020-10-25 19:50 | DRG 93 ==
LOC: JER 10:19 → JERBED 12:06 → J4W 10-24 04:12
PROVIDERS: ADMIT Internal Medicine; ATTEND Internal Medicine
DX: R26.9 Unspecified abnormalities of gait and mobility (principal); F10.10 Alcohol abuse, uncomplicated; G40.909 Epilepsy, unspecified, not intractable, without status epilepticus; W19.XXXA Unspecified fall, initial encounter; Z87.891 Personal history of nicotine dependence
CPT/HCPCS: 36415; 70450-TC; 70551-TC; 71045-TC-FY; 72125-TC; 80053; 80307; 82550; 82553; 84484; 85027; 93005; 93010; 97116-GP; 97161-GP; 99285-25; C9803; U0003

== ENCOUNTER 2022-08-30 04:55 | Inpatient (IN) | payer OTHER ==
[2022-08-30] MEDS ORDERED: ROCURONIUM BROMIDE 50 MG/5 ML SYRINGE ONE ×2 (05:01)
[2022-08-30] MEDS ORDERED: MIDAZOLAM HCL 2 MG/2 ML SINGLE DOSE VIAL ONE ×2 (05:06→07:11)
[2022-08-30] MEDS ORDERED: MIDAZOLAM IN 0.9 % SOD.CHLORID 1 MG/1 ML PLAST..BAG ONE (05:12)
[2022-08-30] MEDS ORDERED: MIDAZOLAM HCL 2 MG/2 ML SINGLE DOSE VIAL IVPUSH ONE ×2 (05:29→07:18)
[2022-08-30] MEDS ORDERED: ROCURONIUM BROMIDE 50 MG/5 ML SYRINGE IV ONE (05:30)
[2022-08-30] MEDS ORDERED: SODIUM CHLORIDE 0.9% 500 ML INFUS.BAG IV ONE ×2 (05:30→07:00)
[2022-08-30] MEDS ORDERED: MIDAZOLAM 100 MG in SODIUM CHLORIDE 100 ML IVPB SCH (05:30)
[2022-08-30 05:47] LABS: BASO % 0.4 % (0-2.0); EOS % 7.6 % (0-4.5); HEMATOCRIT 41.2 % (35.4-49); HEMOGLOBIN 13.3 GM/dL (11.7-16.9); LYMPH % 12.9 % (8-40); MCH 27.6 pg (25.7-33.7); MCHC 32.3 g/dl (32.0-35.9); MEAN CELL VOLUME 85.3 fl (80-96); MEAN PLT VOLUME 8.2 fl (7.5-11.1); MONO % 8.6 % (3.8-10.2); NEUT % 70.5 % (42.8-82.8); PLATELET COUNT 133 10^3/uL (134-434); RBC 4.83 M/mm3 (4.00-5.60); RDW 13.6 % (11.9-15.9); WHITE BLOOD COUNT 6.3 K/mm3 (4.0-10.0)
[2022-08-30 06:08] LABS: CHLORIDE 109 mmol/L (98-107); SODIUM 146 mmol/L (136-145)
[2022-08-30 06:09] LABS: CALCIUM 9.1 mg/dL (8.5-10.1)
[2022-08-30 06:10] LABS: ALBUMIN 3.3 g/dl (3.4-5.0); ANION GAP 13 MMOL/L (8-16); BLOOD UREA NITROGEN 10.4 mg/dL (7-18); CO2 24 mmol/L (21-32); GLUCOSE,RANDOM 218 mg/dL (74-106)
[2022-08-30 06:13] LABS: CREATININE 1.3 mg/dL (0.55-1.3); SGOT/AST 17 U/L (15-37); SGPT/ALT 32 U/L (13-61)
[2022-08-30 06:15] LABS: BILIRUBIN,TOTAL 0.4 mg/dL (0.2-1); TOT PROT 6.2 g/dl (6.4-8.2)
[2022-08-30 06:16] LABS: ALK PHOS 56 U/L (45-117)
[2022-08-30 06:53] LABS: INR 1.01 (0.83-1.09); PROTHROMBIN TIME (PATIENT) 11.6 SEC (9.7-13.0)
[2022-08-30 06:56] LABS: ACTIVATED PTT 28.3 SECONDS (25.2-36.5)
[2022-08-30 07:00] LABS: LACTIC ACID 7.4 mmol/L (0.4-2.0)
[2022-08-30] MEDS: MIDAZOLAM 100 MG in SODIUM CHLORIDE 100 ML IVPB SCH (07:02)
[2022-08-30] MEDS ORDERED: PROPOFOL 1,000,000 MCG/100 ML VIAL ONE (07:37)
[2022-08-30] MEDS ORDERED: ACETAMINOPHEN 650 MG SUPP.RECT RC PRN (08:20)
[2022-08-30] MEDS ORDERED: levETIRAcetam 500 MG/5 ML INJECTION VIAL IVPB SCH (10:00)
[2022-08-30] MEDS ORDERED: levETIRAcetam 500 MG TABLET (FP) PO SCH (10:00)
[2022-08-30] MEDS ORDERED: LEVOTHYROXINE SODIUM 100 MCG 5 ML VIAL IVPUSH SCH ×2 (10:00→12:45)
[2022-08-30 10:03] LABS: EPI CELLS 2 /uL (0-25.1); HYALINE CASTS 0 /uL (0-3.1); URINE APPEARANCE CLEAR; URINE BACTERIA 1 /uL (0-1359); URINE BILIRUBIN NEGATIVE (NEGATIVE); URINE COLOR YELLOW; URINE GLUCOSE (UA) 1+ (NEGATIVE); URINE KETONE NEGATIVE (NEGATIVE); URINE LEUK ESTERASE NEGATIVE (NEGATIVE); URINE NITRITE NEGATIVE (NEGATIVE); URINE PROTEIN TRACE (NEGATIVE); URINE RBC 354 /uL (0-23.9); URINE UROBILINOGEN 0.2 mg/dL (0.2-1.0); URINE WBC 2 /uL (0-25.8)
[2022-08-30] MEDS: ENOXAPARIN NA (PORCINE) 40 MG/0.4 ML DISP.SYRIN SQ SCH (11:06)
[2022-08-30] MEDS: INSULIN SLIDING SCALE (NOVOLOG) 1 VIAL SQ SCH ×3 (11:06→21:22)
[2022-08-30] MEDS ORDERED: LEVOTHYROXINE SODIUM 100 MCG/ML 1 ML VIAL IVPUSH SCH (11:21)
[2022-08-30 11:38] LABS: COCAINE, UR NEGATIVE (NEGATIVE); METHADONE, UR NEGATIVE (NEGATIVE); OPIATES, URI NEGATIVE (NEGATIVE); PHENCYCLIDINE,URINE NEGATIVE (NEGATIVE); URINE AMPHETAMINES NEGATIVE (NEGATIVE); URINE BARBITURATES NEGATIVE (NEGATIVE); URINE BENZODIAZEPINES POSITIVE (NEGATIVE)
[2022-08-30] MEDS: MUPIROCIN 2% TOPICAL OINTMENT FOR DECOLONIZATION NS SCH ×2 (12:47→21:18)
[2022-08-30] MEDS: CHLORHEXIDINE GLUCONATE 4% CLEANSER FOR DECOLONIZATION TP SCH (21:18)
[2022-08-30] MEDS: levETIRAcetam 500 MG TABLET (FP) PO SCH (21:18)
[2022-08-30] MEDS: THIAMINE HCL 200 MG/2 ML VIAL IVPB SCH (21:21)
[2022-08-31] MEDS: THIAMINE HCL 200 MG/2 ML VIAL IVPB SCH ×3 (02:00→16:59)
[2022-08-31] MEDS: INSULIN SLIDING SCALE (NOVOLOG) 1 VIAL SQ SCH ×4 (06:06→21:29)
[2022-08-31] MEDS ORDERED: LEVOTHYROXINE NA 50 MCG TABLET (FP) PO SCH (07:00)
[2022-08-31 07:24] LABS: BASO % 0.2 % (0-2.0); EOS % 2.2 % (0-4.5); HEMATOCRIT 42.8 % (35.4-49); HEMOGLOBIN 14.2 GM/dL (11.7-16.9); LYMPH % 8.2 % (8-40); MCH 28.1 pg (25.7-33.7); MCHC 33.2 g/dl (32.0-35.9); MEAN CELL VOLUME 84.7 fl (80-96); MEAN PLT VOLUME 7.9 fl (7.5-11.1); MONO % 10.1 % (3.8-10.2); NEUT % 79.3 % (42.8-82.8); PLATELET COUNT 145 10^3/uL (134-434); RBC 5.05 M/mm3 (4.00-5.60); RDW 13.8 % (11.9-15.9); WHITE BLOOD COUNT 9.5 K/mm3 (4.0-10.0)
[2022-08-31 07:45] LABS: CALCIUM 8.7 mg/dL (8.5-10.1)
[2022-08-31 07:46] LABS: BLOOD UREA NITROGEN 10.2 mg/dL (7-18)
[2022-08-31 07:49] LABS: PHOSPHOROUS 2.7 mg/dL (2.5-4.9)
[2022-08-31] MEDS: levETIRAcetam 500 MG TABLET (FP) PO SCH ×2 (09:16→21:33)
[2022-08-31] MEDS: LEVOTHYROXINE SODIUM 100 MCG/ML 1 ML VIAL IVPUSH SCH (09:16)
[2022-08-31] MEDS: MUPIROCIN 2% TOPICAL OINTMENT FOR DECOLONIZATION NS SCH ×2 (09:16→21:33)
[2022-08-31] MEDS: ENOXAPARIN NA (PORCINE) 40 MG/0.4 ML DISP.SYRIN SQ SCH (09:17)
[2022-08-31] MEDS: MIDAZOLAM 100 MG in SODIUM CHLORIDE 100 ML IVPB SCH (11:30)
[2022-08-31] MEDS: CHLORHEXIDINE GLUCONATE 4% CLEANSER FOR DECOLONIZATION TP SCH (21:33)
[2022-09-01] MEDS: THIAMINE HCL 200 MG/2 ML VIAL IVPB SCH ×3 (01:02→17:04)
[2022-09-01] MEDS: MIDAZOLAM 100 MG in SODIUM CHLORIDE 100 ML IVPB SCH (06:46)
[2022-09-01] MEDS: INSULIN SLIDING SCALE (NOVOLOG) 1 VIAL SQ SCH ×4 (06:47→21:38)
[2022-09-01] MEDS: levETIRAcetam 500 MG TABLET (FP) PO SCH ×2 (09:48→21:39)
[2022-09-01] MEDS: MUPIROCIN 2% TOPICAL OINTMENT FOR DECOLONIZATION NS SCH ×2 (09:48→21:38)
[2022-09-01] MEDS: ENOXAPARIN NA (PORCINE) 40 MG/0.4 ML DISP.SYRIN SQ SCH (09:48)
[2022-09-01] MEDS: LEVOTHYROXINE SODIUM 100 MCG/ML 1 ML VIAL IVPUSH SCH (09:52)
[2022-09-01 13:37] VITALS: BMI 23.3
[2022-09-01] MEDS: CHLORHEXIDINE GLUCONATE 4% CLEANSER FOR DECOLONIZATION TP SCH (21:38)
[2022-09-02] MEDS: THIAMINE HCL 200 MG/2 ML VIAL IVPB SCH ×2 (01:10→10:27)
[2022-09-02] MEDS: INSULIN SLIDING SCALE (NOVOLOG) 1 VIAL SQ SCH ×2 (06:53→11:17)
[2022-09-02] MEDS ORDERED: LEVOTHYROXINE NA 50 MCG TABLET (FP) PO SCH (07:00)
[2022-09-02] MEDS: levETIRAcetam 500 MG TABLET (FP) PO SCH (10:12)
[2022-09-02] MEDS: ENOXAPARIN NA (PORCINE) 40 MG/0.4 ML DISP.SYRIN SQ SCH (10:13)
[2022-09-02 10:29] LABS: BASO % 0.4 % (0-2.0); EOS % 4.3 % (0-4.5); HEMATOCRIT 42.5 % (35.4-49); HEMOGLOBIN 14.2 GM/dL (11.7-16.9); LYMPH % 11.9 % (8-40); MCH 28.1 pg (25.7-33.7); MCHC 33.3 g/dl (32.0-35.9); MEAN CELL VOLUME 84.5 fl (80-96); MEAN PLT VOLUME 8.1 fl (7.5-11.1); MONO % 10.6 % (3.8-10.2); NEUT % 72.8 % (42.8-82.8); PLATELET COUNT 183 10^3/uL (134-434); RBC 5.04 M/mm3 (4.00-5.60); RDW 13.6 % (11.9-15.9); WHITE BLOOD COUNT 9.8 K/mm3 (4.0-10.0)
[2022-09-02 10:58] LABS: ALBUMIN 3.2 g/dl (3.4-5.0); BLOOD UREA NITROGEN 16.1 mg/dL (7-18)
[2022-09-02 11:01] LABS: CREATININE 1.1 mg/dL (0.55-1.3)
[2022-09-02 11:02] LABS: BILIRUBIN,TOTAL 1.1 mg/dL (0.2-1); TOT PROT 6.9 g/dl (6.4-8.2)
[2022-09-02 13:51] VITALS: BP 134/67; PULSE 84; RESP 18; TEMP 98.6
== END 2022-09-02 16:27 | disposition home or self-care (01) | DRG 100 ==
LOC: JER 04:55 → JERBED 06:23 → JICU 10:09 → J6S 09-02 03:33
PROVIDERS: ADMIT Internal Medicine Pulmonary Disease; ATTEND Internal Medicine
PROC: 0BH17EZ Insertion of Endotracheal Airway into Trachea, Via Natural or Artificial Opening (ICD-10-PCS; principal; 2022-08-30)
PROC: 5A1935Z Respiratory Ventilation, Less than 24 Consecutive Hours (ICD-10-PCS; 2022-08-30)
DX: R56.9 Unspecified convulsions (principal); J96.00 Acute respiratory failure, unspecified whether with hypoxia or hypercapnia; I10 Essential (primary) hypertension; E78.5 Hyperlipidemia, unspecified; E11.9 Type 2 diabetes mellitus without complications; Z85.46 Personal history of malignant neoplasm of prostate; E03.9 Hypothyroidism, unspecified; K21.9 Gastro-esophageal reflux disease without esophagitis
CPT/HCPCS: 0241U-QW; 36415; 70450-TC; 71045-TC-FY; 72125-TC; 72170-TC-FY; 80048; 80053; 80177; 80307; 81003; 82308; 82550; 82553; 82607; 82962; 83605; 83735; 84100; 84443; 84484; 85025; 85610; 85730; 86850; 86900; 86901; 87040; 87086; 93005; 93010; 97116-GP; 97161-GP; 99285-25

== ENCOUNTER 2022-10-31 07:59 | Observation (INO) | payer OTHER ==
[2022-10-31] MEDS ORDERED: levETIRAcetam 500 MG/5 ML INJECTION VIAL IVPB ONE ×2 (08:40→08:51)
[2022-10-31 08:56] VITALS: BMI 26.8
[2022-10-31 08:57] LABS: BASO % 0.3 % (0-2.0); EOS % 7.2 % (0-4.5); HEMATOCRIT 36.8 % (35.4-49); HEMOGLOBIN 12.3 GM/dL (11.7-16.9); LYMPH % 16.5 % (8-40); MCH 28.9 pg (25.7-33.7); MCHC 33.4 g/dl (32.0-35.9); MEAN CELL VOLUME 86.4 fl (80-96); MEAN PLT VOLUME 7.8 fl (7.5-11.1); MONO % 8.4 % (3.8-10.2); NEUT % 67.6 % (42.8-82.8); PLATELET COUNT 112 10^3/uL (134-434); RBC 4.26 M/mm3 (4.00-5.60); RDW 14.1 % (11.9-15.9); VENOUS BASE EXCESS -10.1 mmol/L (-2-2); VENOUS O2 SATURATION 78.2 % (70-80); VENOUS PCO2 36.4 mmHg (38-52); VENOUS PH 7.261 (7.310-7.410); WHITE BLOOD COUNT 4.9 K/mm3 (4.0-10.0)
[2022-10-31 08:58] LABS: PH,URINE 5.5 (5.0-8.0); URINE APPEARANCE CLEAR; URINE BILIRUBIN NEGATIVE (NEGATIVE); URINE COLOR YELLOW; URINE GLUCOSE (UA) NEGATIVE (NEGATIVE); URINE KETONE NEGATIVE (NEGATIVE); URINE LEUK ESTERASE NEGATIVE (NEGATIVE); URINE NITRITE NEGATIVE (NEGATIVE); URINE PROTEIN NEGATIVE (NEGATIVE); URINE UROBILINOGEN 0.2 mg/dL (0.2-1.0)
[2022-10-31 09:04] LABS: INR 1.1 (0.83-1.09); PROTHROMBIN TIME (PATIENT) 12.7 SEC (9.7-13.0)
[2022-10-31 09:07] LABS: ACTIVATED PTT 29.7 SECONDS (25.2-36.5)
[2022-10-31 09:25] LABS: LACTIC ACID 9.2 mmol/L (0.4-2.0)
[2022-10-31 09:32] LABS: CHLORIDE 113 mmol/L (98-107); SODIUM 144 mmol/L (136-145)
[2022-10-31 09:43] LABS: ANION GAP 14 MMOL/L (8-16); BLOOD UREA NITROGEN 11.4 mg/dL (7-18); CO2 17 mmol/L (21-32); GLUCOSE,RANDOM 166 mg/dL (74-106)
[2022-10-31 09:44] LABS: MAGNESIUM 2.1 mg/dL (1.8-2.4)
[2022-10-31 09:47] LABS: CREATININE 1.1 mg/dL (0.55-1.3); SGOT/AST 15 U/L (15-37); SGPT/ALT 24 U/L (13-61)
[2022-10-31 09:48] LABS: BILIRUBIN,TOTAL 0.4 mg/dL (0.2-1); TOT PROT 5.7 g/dl (6.4-8.2)
[2022-10-31 09:50] LABS: ALK PHOS 55 U/L (45-117)
[2022-10-31] MEDS ORDERED: LACTATED RINGERS SOLUTION 1000 ML INFUS.BAG IV ONE (10:30)
[2022-10-31] MEDS ORDERED: ATORVASTATIN CA 20 MG TABLET (FP) PO SCH (22:00)
[2022-10-31] MEDS ORDERED: levETIRAcetam 500 MG TABLET (FP) PO SCH (22:00)
[2022-10-31] MEDS ORDERED: TERAZOSIN HCL 5 MG CAPSULE PO SCH (22:00)
[2022-10-31] MEDS ORDERED: levETIRAcetam 250 MG TABLET PO ONE (22:17)
[2022-10-31] MEDS ORDERED: levETIRAcetam 250 MG TABLET PO STA (22:38)
[2022-10-31] MEDS: levETIRAcetam 500 MG TABLET (FP) PO SCH (22:43)
[2022-11-01 06:24] VITALS: BP 122/65; PULSE 67; RESP 20; TEMP 97.8
[2022-11-01] MEDS ORDERED: LEVOTHYROXINE NA 50 MCG TABLET (FP) PO SCH (07:00)
[2022-11-01] MEDS: levETIRAcetam 500 MG TABLET (FP) PO SCH (09:21)
== END 2022-11-01 14:54 | disposition home or self-care (01) ==
LOC: JER 07:59 → JERBED 08:55 → J5S 16:38
PROVIDERS: ADMIT Internal Medicine; ATTEND Internal Medicine
PROC: 3E0337Z Introduction of Electrolytic and Water Balance Substance into Peripheral Vein, Percutaneous Approach (ICD-10-PCS; principal; 2022-10-31)
PROC: 3E033GC Introduction of Other Therapeutic Substance into Peripheral Vein, Percutaneous Approach (ICD-10-PCS; 2022-10-31)
DX: G40.909 Epilepsy, unspecified, not intractable, without status epilepticus (principal); I10 Essential (primary) hypertension; E03.9 Hypothyroidism, unspecified; Z87.891 Personal history of nicotine dependence; Z85.46 Personal history of malignant neoplasm of prostate; E11.9 Type 2 diabetes mellitus without complications; E78.5 Hyperlipidemia, unspecified; K21.9 Gastro-esophageal reflux disease without esophagitis; F10.21 Alcohol dependence, in remission; S06.30AA Unspecified focal traumatic brain injury with loss of consciousness status unknown, initial encounter; X58.XXXA Exposure to other specified factors, initial encounter; Y93.9 Activity, unspecified
CPT/HCPCS: 0241U-QW; 36415; 70450-TC; 71045-TC-FY; 80053; 80177; 80307; 81003; 82550; 82553; 82803; 82962; 83605; 83735; 84443; 84484; 85025; 85610; 85730; 86850; 86900; 86901; 87040; 87086; 93005; 93010; 96361; 96374; 99285-25; G0378

== ENCOUNTER 2024-01-19 10:21 | Inpatient (IN) | payer OTHER ==
[2024-01-19] MEDS: SODIUM CHLORIDE 1,000 ML IV SCH (11:17)
[2024-01-19 11:25] VITALS: BMI 24.6
[2024-01-19 11:28] LABS: VENOUS BASE EXCESS -2.6 mmol/L (-2-2); VENOUS O2 SATURATION 67.4 % (70-80); VENOUS PCO2 41.7 mmHg (38-52); VENOUS PH 7.355 (7.310-7.410)
[2024-01-19 11:28] LABS: HEMATOCRIT 44.1 % (35.4-49); HEMOGLOBIN 14.6 GM/dL (11.7-16.9); MCH 28.3 pg (25.7-33.7); MCHC 33.2 g/dl (32.0-35.9); MEAN CELL VOLUME 85.1 fl (80-96); MEAN PLT VOLUME 7.9 fl (7.5-11.1); PLATELET COUNT 176 10^3/uL (134-434); RBC 5.17 M/mm3 (4.00-5.60); RDW 13.4 % (11.9-15.9); WHITE BLOOD COUNT 12.9 K/mm3 (4.0-10.0)
[2024-01-19 11:34] LABS: INR 1.09 (0.83-1.09); PROTHROMBIN TIME (PATIENT) 12.3 SEC (9.7-13.0)
[2024-01-19 11:37] LABS: ACTIVATED PTT 27.5 SECONDS (25.2-36.5)
[2024-01-19 12:11] LABS: LACTIC ACID 2.5 mmol/L (0.4-2.0)
[2024-01-19 12:25] LABS: ANISOCYTOSIS 0; HELMET CELLS 0; HOWELL-JOLLY BODIES 0; MACROCYTOSIS 0; OVALOCYTE 0; ROULEAU 0; SICKELED CELLS 0; TARGET CELLS 0; TEAR DROP CELLS 0; TOXIC GRANULATION 0
[2024-01-19] MEDS: DEXTROSE 5%-NORMAL SALINE 1,000 ML IV ONE (12:54)
[2024-01-19 13:54] LABS: CHLORIDE 110 mmol/L (98-107); POTASSIUM 3.8 mmol/L (3.5-5.1); SODIUM 140 mmol/L (136-145)
[2024-01-19 13:56] LABS: CALCIUM 9.9 mg/dL (8.5-10.1)
[2024-01-19 13:57] LABS: ALBUMIN 3.9 g/dl (3.4-5.0); ANION GAP 5 mmol/L (4-13); CO2 25 mmol/L (21-32)
[2024-01-19 13:59] LABS: BLOOD UREA NITROGEN 14.2 mg/dL (7-18); GLUCOSE,RANDOM 192 mg/dL (74-106)
[2024-01-19 14:00] LABS: CREATININE 1.3 mg/dL (0.55-1.3); SGOT/AST 41 U/L (15-37)
[2024-01-19 14:01] LABS: TOT PROT 7.2 g/dl (6.4-8.2)
[2024-01-19 14:02] LABS: CHOLESTEROL 167 mg/dL (50-200)
[2024-01-19 14:03] LABS: BILIRUBIN,TOTAL 0.6 mg/dL (0.2-1); LDL CHOLESTEROL (ONLY SJRH) 95 mg/dL (5-100)
[2024-01-19 14:04] LABS: ALK PHOS 66 U/L (45-117)
[2024-01-19 14:05] LABS: HDL CHOLESTEROL 51 mg/dL (40-60)
[2024-01-19 14:13] LABS: EPI CELLS 3 /uL (0-25.1); HYALINE CASTS 1 /uL (0-3.1); URINE APPEARANCE CLEAR; URINE BACTERIA 0 /uL (0-1359); URINE BILIRUBIN NEGATIVE (NEGATIVE); URINE COLOR YELLOW; URINE GLUCOSE (UA) NEGATIVE (NEGATIVE); URINE KETONE TRACE (NEGATIVE); URINE LEUK ESTERASE NEGATIVE (NEGATIVE); URINE NITRITE NEGATIVE (NEGATIVE); URINE PROTEIN NEGATIVE (NEGATIVE); URINE RBC 25 /uL (0-23.9); URINE UROBILINOGEN 0.2 mg/dL (0.2-1.0); URINE WBC 3 /uL (0-25.8)
[2024-01-19] MEDS ORDERED: AMIODARONE IN DEXTROSE,ISO-OSM 360 MG/200 ML BAG IV SCH ×2 (14:15→20:30)
[2024-01-19] MEDS ORDERED: AMIODARONE IN DEXTROSE,ISO-OSM 150 MG/100 ML BAG ONE (14:29)
[2024-01-19 14:30] LABS: SGPT/ALT 29 U/L (13-61)
[2024-01-19] MEDS ORDERED: AMIODARONE HCL 150 MG/3 ML VIAL ONE (14:34)
[2024-01-19] MEDS ORDERED: AMIODARONE IN DEXTROSE,ISO-OSM 360 MG/200 ML BAG ONE (14:35)
[2024-01-19] MEDS: AMIODARONE HCL INJECTION 150 MG in DEXTROSE 5%-WATER - 100 ML IVPB ONE ×3 (14:41→14:54)
[2024-01-19] MEDS: AMIODARONE IN DEXTROSE,ISO-OSM 360 MG/200 ML BAG IV SCH (14:53)
[2024-01-19] MEDS: AMIODARONE HCL 150 MG/3 ML VIAL IVPB ONE (14:54)
[2024-01-19 17:25] LABS: MAGNESIUM 2.5 mg/dL (1.8-2.4)
[2024-01-19 17:28] LABS: PHOSPHOROUS 2.4 mg/dL (2.5-4.9)
[2024-01-19] MEDS: ASPIRIN 81 MG CHEWABLE TABLETS PO ONE (17:46)
[2024-01-19] MEDS: INSULIN ASPART SLIDING SCALE (NOVOLOG) 1 VIAL SQ SCH (18:03)
[2024-01-19] MEDS ORDERED: METOPROLOL TARTRATE 5 MG/5 ML VIAL IVPUSH PRN (18:29)
[2024-01-19] MEDS: levETIRAcetam 500 MG TABLET (FP) PO SCH (21:15)
[2024-01-19] MEDS: HEPARIN NA (PORCINE) 5,000 UNITS/ML 1ML VIAL SQ SCH (21:15)
[2024-01-19] MEDS: ATORVASTATIN CA 20 MG TABLET (FP) PO SCH (21:15)
[2024-01-19] MEDS: levETIRAcetam 250 MG TABLET PO SCH (21:15)
[2024-01-19] MEDS: PANTOPRAZOLE 20 MG TABLET PO SCH (21:17)
[2024-01-19] MEDS ORDERED: TERAZOSIN HCL 2 MG CAPSULE PO SCH (22:00)
[2024-01-19] MEDS: TERAZOSIN HCL 5 MG CAPSULE PO SCH (23:02)
[2024-01-20] MEDS: MELATONIN 5 MG TABLETS PO ONE (02:15)
[2024-01-20] MEDS: LEVOTHYROXINE NA 50 MCG TABLET (FP) PO SCH (06:19)
[2024-01-20 08:26] LABS: BASO % 0.1 % (0-2.0); EOS % 1.9 % (0-4.5); HEMATOCRIT 39.6 % (35.4-49); LYMPH % 8.4 % (8-40); MCHC 32.7 g/dl (32.0-35.9); MEAN CELL VOLUME 85.4 fl (80-96); MEAN PLT VOLUME 8.1 fl (7.5-11.1); MONO % 8.1 % (3.8-10.2); NEUT % 81.5 % (42.8-82.8); PLATELET COUNT 166 10^3/uL (134-434); RBC 4.64 M/mm3 (4.00-5.60); RDW 13.8 % (11.9-15.9); WHITE BLOOD COUNT 12.1 K/mm3 (4.0-10.0)
[2024-01-20 08:30] LABS: POTASSIUM 4.1 mmol/L (3.5-5.1)
[2024-01-20 08:46] LABS: ALBUMIN 3.1 g/dl (3.4-5.0)
[2024-01-20 08:52] LABS: BILIRUBIN,TOTAL 0.8 mg/dL (0.2-1); TOT PROT 6.1 g/dl (6.4-8.2)
[2024-01-20] MEDS: METOPROLOL TARTRATE 25 MG TABLET (FP) PO SCH (10:34)
[2024-01-20] MEDS: THIAMINE 100 MG TABLET PO SCH (10:34)
[2024-01-22 01:04] VITALS: RESP 18
[2024-01-22] MEDS: VANCOMYCIN/WATER FOR INJ (PEG) 1,000 MG/200 ML BAG IVPB ONE (01:36)
[2024-01-22] MEDS: ACETAMINOPHEN 325 MG TABLET (FP) PO PRN (21:26)
[2024-01-22] MEDS: LIDOCAINE 4% PATCH TP ONE (23:01)
[2024-01-23] MEDS: LIDOCAINE PATCH REMOVAL MC SCH (11:01)
[2024-01-23 14:19] VITALS: BP 124/63; PULSE 76; TEMP 97.6
== END 2024-01-23 14:23 | disposition home or self-care (01) | DRG 308 ==
LOC: JER 10:21 → JERBED 15:50 → J4S 16:50
PROVIDERS: ADMIT Internal Medicine; ATTEND Internal Medicine
DX: I47.10 Supraventricular tachycardia, unspecified (principal); G93.41 Metabolic encephalopathy; I63.9 Cerebral infarction, unspecified; M62.82 Rhabdomyolysis; E78.5 Hyperlipidemia, unspecified; E11.9 Type 2 diabetes mellitus without complications; E03.9 Hypothyroidism, unspecified; I10 Essential (primary) hypertension; R56.9 Unspecified convulsions
CPT/HCPCS: 36415; 70450-TC; 70496-TC; 70498-TC; 71045-TC-FY; 72125-TC; 72170-TC-FY; 73630-TC-RT-FY; 80053; 80061; 80307; 81003; 82550; 82553; 82803; 82962; 83036; 83605; 83735; 84100; 84439; 84443; 84484; 85025; 85610; 85730; 86850; 86900; 86901; 87040; 93005; 93010; 93306-TC; 97116-GP; 99291; J1644; Q9967